=== PATIENT | female | born 1955 | race Asian ===

== ENCOUNTER 2023-02-13 00:03 | Emergency (ER) | payer BC ==
[~2023-02-13] VITALS: Ht 152.4 cm; Wt 71.0 kg
[2023-02-13] MEDS ORDERED: PB/HYOSCY/ATR/SCOP/LIDO/MAALOX 55 ML BOTTLE PO ONE (00:45)
[2023-02-13 01:30] VITALS: TEMP 98.3
[2023-02-13 02:07] LABS: BASOPHILS % (AUTO) 0.4 % (0.0-2.0); HEMATOCRIT 41.2 % (36-46); HEMOGLOBIN 13.8 g/dL (12.0-16.0); LYMPHOCYTES # (AUTO) 1.2 K/uL (1.0-4.8); LYMPHOCYTES % (AUTO) 17.4 % (22.0-44.0); MEAN CORPUSCULAR HEMOGLOBIN 29.8 pg (26.0-34.0); MEAN CORPUSCULAR HGB CONC 33.4 G/dL (31.0-37.0); MEAN CORPUSCULAR VOLUME 89 fL (80-100); MONOCYTES # (AUTO) 0.4 K/uL (0.1-1.0); MONOCYTES % (AUTO) 5.5 % (2.0-9.0); NEUTROPHILS # (AUTO) 5.2 K/uL (1.8-7.7); NEUTROPHILS % (AUTO) 74.7 % (40.0-70.0); PLATELET COUNT (AUTO) 247 K/uL (150-450); RED BLOOD CELL COUNT(AUTO) 4.63 MIL/uL (4.00-5.20); RED CELL DISTRIBUTION WIDTH 12.9 % (11.5-14.5); WHITE BLOOD COUNT (AUTO) 6.9 K/uL (4.5-11.0)
[2023-02-13 02:20] LABS: CALCIUM, TOTAL 9.8 mg/dL (8.8-10.5); CREATININE 1.02 mg/dL (0.60-1.30); POTASSIUM 3.6 mmol/L (3.5-5.1)
[2023-02-13 02:26] LABS: BILIRUBIN,TOTAL 0.3 mg/dL (0.1-1.0)
[2023-02-13 02:27] LABS: TROPONIN I-HIGH SENSITIVITY 4 ng/L (<51)
[2023-02-13] MEDS ORDERED: ONDANSETRON HCL 4 MG/2 ML VIAL IVP ONE (03:00)
[2023-02-13] MEDS ORDERED: FentaNYL CITRATE PF 100 MCG/2 ML VIAL IVP ONE (03:00)
[2023-02-13] MEDS ORDERED: ONDA-104 PO (04:53)
[2023-02-13] MEDS: FentaNYL CITRATE PF 100 MCG/2 ML VIAL IVP ONE ×2 (04:58→04:59)
[2023-02-13 05:22] VITALS: BP 135/90; PULSE 74; RESP 16
== END 2023-02-13 05:27 | disposition home or self-care (01) ==
LOC: EMS 00:06
DX: K80.66 Calculus of gallbladder and bile duct with acute and chronic cholecystitis without obstruction (principal); J45.909 Unspecified asthma, uncomplicated; Z98.890 Other specified postprocedural states; Z88.0 Allergy status to penicillin; Z88.6 Allergy status to analgesic agent; Z88.5 Allergy status to narcotic agent
CPT/HCPCS: 99285; 74176; 96374; 71045; 96375; 80053; 83690; 84484; 85025; 36415; 93005; J3010; J2405